=== PATIENT | female | born 1955 | race Caucasian/White ===

== ENCOUNTER → 2016-09-02 | Outpatient (CLI) | payer MEDICAID ==
[~2016-09-02] MED LIST: ASPIRIN 81M81 MG/TA2 PO; CELEXA10 MG PO; FLONASE NASAL S16 GM NS; FORTAMET500 MG PO; IMODIUM 2MG CAPS2 MG PO; LEVOTHROID0.125 MG PO; LISINOPRIL20 MG PO; LOMOTIL 0.025 M1 TAB PO; NAPROSYN500 MG PO; NATURAL MAGNES200 MG PO; NEURONTIN300 MG/CAP PO; PRILOSEC 20MG20 MG PO; PROAIR HFA0.09 MG/AC IH; QUININE SULFAT324 MG PO; SINGULAIR10 MG PO; SYNTHROID0.125 MG/T PO; SYSTANE BALANCE10 M1 OP; TYLENOL 325MG325 MG PO; VESICARE10 MG PO; VOLTAREN50 MG PO
[2016-09-02 13:36] LABS: CALCIUM 9.6 mg/dL (8.4-10.2); CREATININE, serum 0.69 mg/dL (0.52-1.25); MAGNESIUM 1.7 mg/dL (1.6-2.3); POTASSIUM 4.2 mmol/L (3.4-5.0)
== END ==
LOC: ZCOL.LAB 10:46
PROVIDERS: Internal Medicine
DX: F32.3 Major depressive disorder, single episode, severe with psychotic features (principal)

== ENCOUNTER → 2016-10-28 | Outpatient (CLI) | payer MEDICAID ==
[2016-10-28 20:13] LABS: CREATININE, serum 0.74 mg/dL (0.52-1.25); MAGNESIUM 1.6 mg/dL (1.6-2.3); POTASSIUM 4.4 mmol/L (3.4-5.0)
== END ==
LOC: ZCOL.LAB 19:53
PROVIDERS: Internal Medicine
DX: E83.42 Hypomagnesemia (principal); E11.9 Type 2 diabetes mellitus without complications

== ENCOUNTER → 2016-11-01 | Outpatient (CLI) | payer MEDICAID | LOC: ZCOL.LAB 21:21 | DX: Z53.9 Procedure and treatment not carried out, unspecified reason (principal) ==

== ENCOUNTER → 2016-11-02 | Outpatient (CLI) | payer MEDICAID | LOC: ZCOL.LAB 07:18 | DX: E03.8 Other specified hypothyroidism (principal) ==

== ENCOUNTER → 2017-02-08 | Outpatient (CLI) | payer MEDICAID | LOC: MHCPAIN 10:59 | DX: G89.29 Other chronic pain (principal); M47.817 Spondylosis without myelopathy or radiculopathy, lumbosacral region; M54.16 Radiculopathy, lumbar region; M53.3 Sacrococcygeal disorders, not elsewhere classified; Z87.891 Personal history of nicotine dependence | CPT/HCPCS: G0463 ==

== ENCOUNTER 2017-04-04 14:30 | Outpatient (RCR) | payer MEDICAID | END 2017-04-13 08:25 | disposition still patient (30) | LOC: WSPT 14:30 | DX: M51.36 Other intervertebral disc degeneration, lumbar region (principal) ==

== ENCOUNTER → 2017-04-07 | Outpatient (CLI) | payer MEDICAID | LOC: MC.RAD 13:40 | DX: Z12.31 Encounter for screening mammogram for malignant neoplasm of breast (principal) ==

== ENCOUNTER → 2017-05-04 | Outpatient (CLI) | payer MEDICAID | LOC: MHCPAIN 09:27 | DX: G89.29 Other chronic pain (principal); M47.817 Spondylosis without myelopathy or radiculopathy, lumbosacral region; M53.3 Sacrococcygeal disorders, not elsewhere classified; M79.2 Neuralgia and neuritis, unspecified; Z87.891 Personal history of nicotine dependence; E66.9 Obesity, unspecified; Z79.82 Long term (current) use of aspirin; Z68.43 Body mass index [BMI] 50.0-59.9, adult | CPT/HCPCS: G0463 ==

== ENCOUNTER → 2017-05-16 | Outpatient (CLI) | payer MEDICAID ==
[2017-05-16 12:46] LABS: THYROID STIMULATING HORMONE 2.17 uIU/mL (0.465-4.680)
== END ==
LOC: ZCOL.LAB 09:05
PROVIDERS: Internal Medicine
DX: E66.01 Morbid (severe) obesity due to excess calories (principal); E03.9 Hypothyroidism, unspecified

== ENCOUNTER → 2017-06-07 | Outpatient (CLI) | payer MEDICAID | LOC: COL.RAD 08:56 | DX: M47.817 Spondylosis without myelopathy or radiculopathy, lumbosacral region (principal); R93.7 Abnormal findings on diagnostic imaging of other parts of musculoskeletal system ==

== ENCOUNTER → 2017-08-30 | Outpatient (CLI) | payer MEDICAID | LOC: MHCPAIN 08:24 | DX: G89.29 Other chronic pain (principal); M47.27 Other spondylosis with radiculopathy, lumbosacral region; M53.3 Sacrococcygeal disorders, not elsewhere classified; M47.814 Spondylosis without myelopathy or radiculopathy, thoracic region; Z87.891 Personal history of nicotine dependence | CPT/HCPCS: G0463 ==

== ENCOUNTER → 2017-09-02 | Outpatient (CLI) | payer MEDICAID | LOC: ZCOL.LAB 06:00 | DX: E11.9 Type 2 diabetes mellitus without complications (principal) ==

== ENCOUNTER → 2017-09-02 | Outpatient (CLI) | payer MEDICAID | LOC: ZCOL.LAB 09:42 | DX: Z01.89 Encounter for other specified special examinations (principal) ==

== ENCOUNTER → 2017-09-29 | Outpatient (CLI) | payer MEDICAID | LOC: MHCPAIN 09:28 | DX: M47.817 Spondylosis without myelopathy or radiculopathy, lumbosacral region (principal) ==

== ENCOUNTER → 2017-10-04 | Outpatient (CLI) | payer MEDICAID | LOC: MHCPAIN 09:35 | DX: G89.29 Other chronic pain (principal); M47.817 Spondylosis without myelopathy or radiculopathy, lumbosacral region; M53.3 Sacrococcygeal disorders, not elsewhere classified | CPT/HCPCS: G0463 ==

== ENCOUNTER → 2017-10-27 | Outpatient (CLI) | payer MEDICAID | LOC: MHCPAIN 08:56 | DX: M47.817 Spondylosis without myelopathy or radiculopathy, lumbosacral region (principal) ==

== ENCOUNTER → 2017-11-01 | Outpatient (CLI) | payer MEDICAID | LOC: MHCPAIN 12:49 | DX: G89.29 Other chronic pain (principal); M47.817 Spondylosis without myelopathy or radiculopathy, lumbosacral region; M53.3 Sacrococcygeal disorders, not elsewhere classified; Z87.891 Personal history of nicotine dependence | CPT/HCPCS: G0463 ==

== ENCOUNTER → 2017-11-24 | Outpatient (CLI) | payer MEDICAID | LOC: MHCPAIN 09:20 | DX: M47.817 Spondylosis without myelopathy or radiculopathy, lumbosacral region (principal); M46.96 Unspecified inflammatory spondylopathy, lumbar region | CPT/HCPCS: J2250; J3010 ==

== ENCOUNTER → 2017-12-07 | Outpatient (CLI) | payer MEDICAID ==
[2017-12-07 09:44] LABS: ALBUMIN 3.9 gm/dL (3.5-5.0); BILIRUBIN,TOTAL 0.5 mg/dL (0.0-1.0); CALCIUM 9.8 mg/dL (8.4-10.2); CREATININE, serum 0.69 mg/dL (0.52-1.25); POTASSIUM 4.3 mmol/L (3.4-5.0); TOTAL PROTEIN 7.4 gm/dL (6.4-8.2)
== END ==
LOC: ZCOL.LAB 09:12
PROVIDERS: Internal Medicine
DX: E11.9 Type 2 diabetes mellitus without complications (principal)

== ENCOUNTER → 2017-12-22 | Outpatient (CLI) | payer MEDICAID | LOC: MHCPAIN 14:02 | DX: M47.817 Spondylosis without myelopathy or radiculopathy, lumbosacral region (principal); M43.16 Spondylolisthesis, lumbar region | CPT/HCPCS: J2250; J3010 ==

== ENCOUNTER → 2018-02-13 | Outpatient (CLI) | payer MEDICAID | LOC: MHCPAIN 12:31 | DX: G89.29 Other chronic pain (principal); M47.817 Spondylosis without myelopathy or radiculopathy, lumbosacral region; M53.3 Sacrococcygeal disorders, not elsewhere classified | CPT/HCPCS: G0463 ==

== ENCOUNTER → 2018-04-17 | Outpatient (CLI) | payer MEDICAID | LOC: MC.RAD 13:12 | DX: Z12.31 Encounter for screening mammogram for malignant neoplasm of breast (principal) ==

== ENCOUNTER → 2018-06-16 | Outpatient (REF) ==
[2018-06-16 09:57] LABS: BASO % 0.4 % (0.0-2.0); EOS # 0.5 (0.0-0.7); GRAN # 3.7 (1.4-6.5); GRAN % 54.9 % (42.2-75.2); HEMATOCRIT 41.1 % (37.0-47.0); HEMOGLOBIN 13.7 g/dl (12.5-16.0); LYMPH # 1.9 (1.2-3.4); LYMPH % 28.6 % (20.0-51.0); MEAN CELL VOLUME 93 fl (80.0-100.0); MEAN CORPUSCULAR HEMOGLOBIN 31 pg (27.0-31.0); MEAN CORPUSCULAR HGB CONC 33 g/dl (33.0-37.0); MEAN PLATELET VOLUME 11.4 fl (7.4-10.4); MONO # 0.5 (0.1-0.6); PLATELET COUNT 259 K/mm3 (130-400); RED BLOOD COUNT 4.43 M/mm3 (4.10-5.30); REDCELL DISTRIBUTION WIDTH-CV 14.8 % (11.5-14.5)
[2018-06-16 10:07] LABS: ALBUMIN 3.8 gm/dL (3.5-5.0); BILIRUBIN,TOTAL 0.5 mg/dL (0.0-1.0); CALCIUM 9.2 mg/dL (8.4-10.2); CREATININE, serum 0.57 mg/dL (0.52-1.25); POTASSIUM 4.5 mmol/L (3.4-5.0); TOTAL PROTEIN 6.9 gm/dL (6.4-8.2)
[2018-06-16 10:37] LABS: THYROID STIMULATING HORMONE 4.46 uIU/mL (0.465-4.680)
== END ==
LOC: ZCOL.LAB 09:51
PROVIDERS: Internal Medicine
DX: I10 Essential (primary) hypertension (principal); E03.9 Hypothyroidism, unspecified

== ENCOUNTER → 2018-09-01 | Outpatient (CLI) | payer MEDICAID | LOC: ZCOL.LAB 12:28 | DX: E03.9 Hypothyroidism, unspecified (principal) ==

== ENCOUNTER → 2018-09-07 | Outpatient (CLI) | payer MEDICAID | LOC: ZCOL.LAB 11:41 | DX: E11.9 Type 2 diabetes mellitus without complications (principal) ==

== ENCOUNTER → 2018-09-13 | Outpatient (CLI) | payer MEDICAID | LOC: MHCPAIN 08:20 | DX: G89.29 Other chronic pain (principal); M47.817 Spondylosis without myelopathy or radiculopathy, lumbosacral region; M53.3 Sacrococcygeal disorders, not elsewhere classified | CPT/HCPCS: G0463 ==

== ENCOUNTER → 2018-09-21 | Outpatient (CLI) | payer MEDICAID | LOC: MHCPAIN 08:18 | DX: M47.817 Spondylosis without myelopathy or radiculopathy, lumbosacral region (principal); M54.16 Radiculopathy, lumbar region ==

== ENCOUNTER → 2018-11-24 | Outpatient (REF) | LOC: ZCOL.LAB 13:16 | DX: M17.9 Osteoarthritis of knee, unspecified (principal) ==

== ENCOUNTER → 2018-11-30 | Outpatient (REF) | LOC: ZCOL.LAB 12:36 | DX: E03.9 Hypothyroidism, unspecified (principal) ==

== ENCOUNTER → 2018-12-07 | Outpatient (CLI) | payer MEDICAID | LOC: MHCPAIN 09:25 | DX: M47.817 Spondylosis without myelopathy or radiculopathy, lumbosacral region (principal); M53.3 Sacrococcygeal disorders, not elsewhere classified; G89.29 Other chronic pain | CPT/HCPCS: G0463; J2250; J3010 ==

== ENCOUNTER → 2018-12-14 | Outpatient (CLI) | payer MEDICAID | LOC: MHCPAIN 08:30 | DX: M47.817 Spondylosis without myelopathy or radiculopathy, lumbosacral region (principal); M54.16 Radiculopathy, lumbar region | CPT/HCPCS: J2250; J3010 ==

== ENCOUNTER → 2019-01-10 | Outpatient (CLI) | payer MEDICAID | LOC: MHCPAIN 13:47 | DX: G89.29 Other chronic pain (principal); M47.817 Spondylosis without myelopathy or radiculopathy, lumbosacral region; M53.3 Sacrococcygeal disorders, not elsewhere classified | CPT/HCPCS: G0463 ==

== ENCOUNTER → 2019-01-12 | Outpatient (CLI) | payer MEDICAID | LOC: ZCOL.LAB 13:30 | DX: E03.9 Hypothyroidism, unspecified (principal) ==

== ENCOUNTER → 2019-02-09 | Outpatient (CLI) | payer MEDICAID | LOC: ZCOL.LAB 16:01 | DX: E11.9 Type 2 diabetes mellitus without complications (principal) ==

== ENCOUNTER 2019-03-01 23:04 | Inpatient (IN) | payer MEDICARE, MEDICAID ==
[~2019-03-01] VITALS: Ht 144.8 cm; Wt 113.3 kg
[2019-03-01 23:49] LABS: BASO % 0.2 % (0.0-2.0); EOS % 0.3 % (0-4.0); GRAN # 8.2 (1.4-6.5); GRAN % 71.7 % (42.2-75.2); HEMATOCRIT 41.9 % (37.0-47.0); HEMOGLOBIN 13.9 g/dl (12.5-16.0); LYMPH # 2.3 (1.2-3.4); LYMPH % 20.1 % (20.0-51.0); MEAN CELL VOLUME 92 fl (80.0-100.0); MEAN CORPUSCULAR HEMOGLOBIN 31 pg (27.0-31.0); MEAN CORPUSCULAR HGB CONC 33 g/dl (33.0-37.0); MEAN PLATELET VOLUME 11.6 fl (7.4-10.4); MONO # 0.9 (0.1-0.6); MONO % 7.4 % (1.7-9.3); PLATELET COUNT 262 K/mm3 (130-400); RED BLOOD COUNT 4.55 M/mm3 (4.10-5.30); REDCELL DISTRIBUTION WIDTH-CV 14.6 % (11.5-14.5)
[2019-03-01 23:59] LABS: ACETAMINOPHEN < 10 ug/mL (10-30); ALANINE AMINOTRANSFERASE 18 U/L (9-52); ALBUMIN 4.3 gm/dL (3.5-5.0); ALCOHOL(ethanol),MEDICAL < 10 mg/dL; ALKALINE PHOSPHATASE 94 U/L (50-136); ANION GAP 10 mmol/L (7-16); AST,SGOT 25 U/L (15-37); BILIRUBIN,TOTAL 0.6 mg/dL (0.0-1.0); BLOOD UREA NITROGEN 24 mg/dL (7-17); CALCIUM 9.6 mg/dL (8.4-10.2); CARBON DIOXIDE 27 mmol/L (22-30); CHLORIDE 105 mmol/L (98-107); CREATININE, serum 0.78 (0.52-1.25); GLUCOSE 106 mg/dL (74-106); POTASSIUM 3.9 mmol/L (3.4-5.0); SALICYLATE < 1.0 mg/dL; SODIUM 142 mmol/L (137-145); TOTAL PROTEIN 8.1 gm/dL (6.4-8.2)
[2019-03-02 01:04] LABS: COLLECTION METHOD CLEAN CATCH
[2019-03-02 01:12] LABS: MUCOUS Present /lpf; PH 5 (5-8); SQUAMOUS EPITHELIAL None Seen /hpf; URINE APPEARANCE Hazy; URINE BACTERIA Moderate /hpf; URINE BILIRUBIN Negative (NEGATIVE); URINE BLOOD Negative (NEGATIVE); URINE COLOR Yellow; URINE GLUCOSE Negative (NEGATIVE); URINE KETONE Negative (NEGATIVE); URINE LEUKOCYTE ESTERASE 1+ (NEGATIVE); URINE NITRATE Positive (NEGATIVE); URINE PROTEIN(semi-quant) Negative (NEGATIVE); URINE RBC 0-2 /hpf; URINE UROBILINOGEN Negative (NEGATIVE)
[2019-03-02 01:18] LABS: TRICYCLIC ANTIDEPRESS URINE POSITIVE
[2019-03-02] MEDS ORDERED: SYNTHROID0.1 MG/TAB PO (03:22)
[2019-03-02] MEDS ORDERED: REFRESH TEARS 330 ML OP (03:23)
[2019-03-02] MEDS ORDERED: [UNRECOGNIZED DRUG - OTHER] TOP (03:24)
[2019-03-02] MEDS ORDERED: FLONASEALLERGY NS (03:25)
[2019-03-02] MEDS ORDERED: BIOFREEZE 0.2%-1 GE1 TOP (03:26)
[2019-03-02] MEDS ORDERED: CYMBALTA 60MG60 MG PO (03:27)
[2019-03-02] MEDS ORDERED: DITROPAN XL10 MG PO (03:28)
[2019-03-02] MEDS ORDERED: FLEXERIL5 MG PO (03:29)
[2019-03-02] MEDS ORDERED: CALCIUM 600600 MG PO (03:29)
[2019-03-02] MEDS ORDERED: ALLEGRA 180MG180 MG PO (03:30)
[2019-03-02] MEDS ORDERED: NEURONTIN300 MG/CAP PO (03:30)
[2019-03-02 03:34] VITALS: BP 119/57; PULSE 59; TEMP 97.6
[2019-03-02 04:00] VITALS: BP 119/57; PULSE 59; TEMP 97.6
--- NOTE | 2019-03-02 06:20 | NUR ---
Patient to the floor at 0330. Vital signs WNL. Patient whispers yes/no answers to questions. States her name is Sal. Patient withdrawn when first coming to the floor. Now patient verbalizes delusions such as "RICKY is alive and has been sold into slavery", "My is in the bathroom, he got locked in there and the door handle fell off.", "the beast put the cyst inside me, and the doctor in [place] said the cyst is killing me, I wish everyone had cysts inside them so they could .". Staff walks by patient room and patient noted to be talking to someone, but there is no one in the room. She pauses, as if she is listening to someone's responses. Bed alarm on. Patient does utilize call light when she needs to talk to staff. Will continue to monitor.
--- NOTE | 2019-03-02 08:00 | NUR ---
Patient in bed. Alert and hallucinating. Patient is speaking to "RUTHY". Speech is incoherent. Shift assessment complete. Takes meds without difficulty.
[2019-03-02 08:30] VITALS: BP 106/47; PULSE 57; TEMP 98.1
[2019-03-02 10:11] LABS: BASO % 0.1 % (0.0-2.0); EOS # 0.1 (0.0-0.7); GRAN # 5.1 (1.4-6.5); HEMATOCRIT 39.5 % (37.0-47.0); LYMPH # 1.9 (1.2-3.4); MEAN CELL VOLUME 93 fl (80.0-100.0); MEAN CORPUSCULAR HEMOGLOBIN 30 pg (27.0-31.0); MEAN CORPUSCULAR HGB CONC 33 g/dl (33.0-37.0); MEAN PLATELET VOLUME 12.1 fl (7.4-10.4); MONO # 0.8 (0.1-0.6); MONO % 10.4 % (1.7-9.3); PLATELET COUNT 228 K/mm3 (130-400); RED BLOOD COUNT 4.27 M/mm3 (4.10-5.30); REDCELL DISTRIBUTION WIDTH-CV 14.6 % (11.5-14.5)
[2019-03-02 10:22] LABS: CALCIUM 8.9 mg/dL (8.4-10.2); CREATININE, serum 0.66 (0.52-1.25); POTASSIUM 3.9 mmol/L (3.4-5.0)
[2019-03-02 12:12] VITALS: BP 135/71; PULSE 58; TEMP 97.9
--- NOTE | 2019-03-02 13:00 | NUR ---
Patients bed alarm going off, Patient crawling to floor as this nurse entered room. Patient, hallucinatory, states that the "wall has cracked and is going to fall". Attempted to reorient patient, unsuccessfull. Patient began rolling on floor out of room. Patient states she needs to get away from the crack. Resists attempts to get patient up off floor. Patient states she needs to get away because the floor because she going to fall into the crack. Patient then proceeds to roll out of room into [address]. Multiple staff members attempting to get patient up off floor. Patient resisting attempts. Dr. Salinas aware. Multiple staff members required to get patient up off floor into wheelchair. Patient moved to room 326. Daughter at bedside at this time. Patient now back in bed. Bed alarm on.
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
--- NOTE | 2019-03-02 15:55 | NUR ---
Patient accepted to [facility] tomorrow. [facility] P [phone] F [id number]
--- NOTE | 2019-03-02 17:23 | NUR ---
Patient in bed resting. Has done well the remainder of this afternoon. Has been using call light to get up out of bed. Daughter states that this is the worse epidose of hallucinations she has seen, last time this happened was 12 months ago. Patient will be transfering to [place] tomorrow. Denies further needs. Will report off to material handler 1st shift.
[2019-03-02 20:25] VITALS: BP 114/59; PULSE 86; TEMP 98.1
[2019-03-02 23:35] VITALS: BP 112/82; PULSE 86; TEMP 99.1
--- NOTE | 2019-03-03 01:57 | NUR ---
Upon arrival to shift at 1900, Patient was constantly talking about a lot of different topics such as Agent Garza, screwdrivers in her back, her "chinchilla nafisa" and would interrupt staff when they attempted to have a conversation about any of her topics. At about 2325, this nurse called Loree to update her that patient had talked non-stop since 1899. Patient was intermittently agitated with respiratory therapy and staff. Patient not combative. Loree ordered 25mg Seroquel now. At 0020 this nurse called Loree back and updated her that the Seroquel had not helped as patient was continuing to non-stop talk and had taken 2 walks around the unit. She ordered Geodon 10mg IM. This was administered at about 0030. Patient is now resting in bed and has stopped talking. Currently awake, but appears to be resting more comfortably. Patient utilizes call light to use the restroom frequently. Patient unable to be oriented at this time and continues to call herself "Sal". Will continue to monitor patient.
[2019-03-03 04:25] VITALS: BP 95/44; PULSE 61; TEMP 98.4
--- NOTE | 2019-03-03 04:35 | NUR ---
Patient noted to be snoring upon entering the room. This nurse awoke patient and she stated her name as Mili Downs, that it was February of 2019, and she was at [facility]. Patient reoriented that she was at the hospital and she stated, "Oh, that's right." Patient took oral synthroid, was administered IM Rocephin with no difficulty. Patient then went back to sleep. Easily arousable. Will continue to monitor patient.
[2019-03-03 07:37] LABS: BASO % 0.2 % (0.0-2.0); EOS # 0.3 (0.0-0.7); EOS % 2.7 % (0-4.0); GRAN # 5.9 (1.4-6.5); GRAN % 62.9 % (42.2-75.2); HEMATOCRIT 40.3 % (37.0-47.0); HEMOGLOBIN 13.4 g/dl (12.5-16.0); LYMPH # 2.3 (1.2-3.4); LYMPH % 24.5 % (20.0-51.0); MEAN CELL VOLUME 91 fl (80.0-100.0); MEAN CORPUSCULAR HEMOGLOBIN 30 pg (27.0-31.0); MEAN CORPUSCULAR HGB CONC 33 g/dl (33.0-37.0); MEAN PLATELET VOLUME 11.8 fl (7.4-10.4); MONO # 0.9 (0.1-0.6); MONO % 9.4 % (1.7-9.3); PLATELET COUNT 235 K/mm3 (130-400); RED BLOOD COUNT 4.43 M/mm3 (4.10-5.30); REDCELL DISTRIBUTION WIDTH-CV 14.4 % (11.5-14.5)
[2019-03-03 07:46] VITALS: BP 120/65; PULSE 77; TEMP 98.1
[2019-03-03 07:49] LABS: CREATININE, serum 0.59 (0.52-1.25); POTASSIUM 3.8 mmol/L (3.4-5.0)
[2019-03-03] MEDS ORDERED: CEFTIN 250250 MG/TAB PO (07:49)
--- NOTE | 2019-03-03 09:03 | NUR ---
the pt was bedresting, fidgeting as the shift began, bedside with Mirella CASTORENA. the pt is A&O, but interjecting delusions. 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 her daughter came into visit, stated that she is an only shild. the pt took her meds whole without difficulty.
--- NOTE | 2019-03-03 10:00 | NUR ---
SW informed that patient can discharge to [facility] for geriatric psych treatment today 03/03. Shop Manager contacted [facility]. RUSS faxed discharge orders and spoke with patient's daughter about discharge.
--- NOTE | 2019-03-03 11:14 | NUR ---
THE PT IS UP TO AMBULATE AGAIN. RESTLESS
--- NOTE | 2019-03-03 11:43 | NUR ---
RECIEVED A CALL FROM [facility], THIS NURSE CALLED PTS DAUGHTER, GNOZALES TO LET HER KNOW THAT THEY WILL BE HERE TO TRANSPORT THE PT IN ABOUT 30 MIN. THIS NURSE CALLED REPORT TO [facility] AT [facility]. [phone] TO RECIEVING NURSE.
--- NOTE | 2019-03-03 11:45 | NUR ---
Visited, listened, and prayed with the patient.
--- NOTE | 2019-03-03 12:08 | NUR ---
[facility] HERE, PT AMBULATED WITH HER FRONT WHEEL WALKER TO THEIR AWAITING VEHICLE AT THE EMERGENCY DOOR ENTERANCE. INFO PACKET VREO.
== END 2019-03-03 12:00 | DRG 690 ==
LOC: COL.ER 23:04 → SURG 03-02 02:15
PROVIDERS: Emergency Medicine; Nurse Practitioner Family; ADMIT Internal Medicine
DX: N39.0 Urinary tract infection, site not specified (principal); Z68.43 Body mass index [BMI] 50.0-59.9, adult; F33.3 Major depressive disorder, recurrent, severe with psychotic symptoms; J44.9 Chronic obstructive pulmonary disease, unspecified; E11.40 Type 2 diabetes mellitus with diabetic neuropathy, unspecified; E66.9 Obesity, unspecified; E03.9 Hypothyroidism, unspecified; K21.9 Gastro-esophageal reflux disease without esophagitis; K58.9 Irritable bowel syndrome, unspecified; I10 Essential (primary) hypertension; Z86.718 Personal history of other venous thrombosis and embolism; G47.39 Other sleep apnea; Z66 Do not resuscitate; N32.81 Overactive bladder
CPT/HCPCS: 99222-AI; 99239; A4216; J0696; J3486

== ENCOUNTER → 2019-03-21 | Outpatient (CLI) | payer MEDICARE, MEDICAID ==
[~2019-03-21] MED LIST changes: +ALLEGRA 180MG180 MG PO; +BIOFREEZE 0.2%-1 GE1 TOP; +CALCIUM 600600 MG PO; +CEFTIN 250250 MG/TAB PO; +CYMBALTA 60MG60 MG PO; +DITROPAN XL10 MG PO; +FLEXERIL5 MG PO; +FLONASEALLERGY NS; +REFRESH TEARS 330 ML OP; +SYNTHROID0.1 MG/TAB PO; +[UNRECOGNIZED DRUG - OTHER] TOP
[2019-03-21 21:32] LABS: COLLECTION METHOD CLEAN CATCH
[2019-03-21 21:46] LABS: MUCOUS Present /lpf; PH 5 (5-8); URINE APPEARANCE Hazy; URINE BACTERIA Rare /hpf; URINE BILIRUBIN Negative (NEGATIVE); URINE BLOOD Negative (NEGATIVE); URINE COLOR Yellow; URINE GLUCOSE Negative (NEGATIVE); URINE KETONE Negative (NEGATIVE); URINE LEUKOCYTE ESTERASE Negative (NEGATIVE); URINE NITRATE Negative (NEGATIVE); URINE PROTEIN(semi-quant) Negative (NEGATIVE); URINE RBC 0-2 /hpf; URINE UROBILINOGEN Negative (NEGATIVE); URINE WBC 0-2 /hpf
== END ==
LOC: COL.LAB 20:53
DX: N39.0 Urinary tract infection, site not specified (principal)

== ENCOUNTER → 2019-05-03 | Outpatient (CLI) | payer MEDICARE, MEDICAID | LOC: MC.RAD 09:02 | DX: Z12.31 Encounter for screening mammogram for malignant neoplasm of breast (principal) ==

== ENCOUNTER → 2019-05-15 | Outpatient (CLI) | payer MEDICAID | LOC: MHCPAIN 13:53 | DX: G89.29 Other chronic pain (principal); M47.817 Spondylosis without myelopathy or radiculopathy, lumbosacral region; M53.3 Sacrococcygeal disorders, not elsewhere classified | CPT/HCPCS: G0463 ==

== ENCOUNTER → 2019-07-17 | Outpatient (CLI) | payer MEDICAID ==
[2019-07-17 09:49] LABS: CHOLESTEROL RISK RATIO 3.4
[2019-07-17 10:07] LABS: PROLACTIN 63.7 ng/mL (3.0-18.6)
[2019-07-17 10:21] LABS: THYROID STIMULATING HORMONE 1.09 uIU/mL (0.465-4.680)
== END ==
LOC: ZCOL.LAB 08:25
PROVIDERS: Family Medicine
DX: E55.9 Vitamin D deficiency, unspecified (principal); E75.6 Lipid storage disorder, unspecified; E22.1 Hyperprolactinemia; E34.9 Endocrine disorder, unspecified

== ENCOUNTER → 2019-09-28 | Outpatient (CLI) | payer MEDICAID | LOC: ZCOL.LAB 10:39 | DX: E03.9 Hypothyroidism, unspecified (principal) ==

== ENCOUNTER → 2019-12-25 | Outpatient (CLI) | payer MEDICAID ==
[2019-12-25 12:59] LABS: ALBUMIN 3.9 gm/dL (3.5-5.0); BILIRUBIN UNCONJUGATED 0.2 mg/dL (0.0-1.1); BILIRUBIN,DIRECT 0.1 mg/dL (0.0-0.4); BILIRUBIN,TOTAL 0.3 mg/dL (0.0-1.0); TOTAL PROTEIN 6.9 gm/dL (6.4-8.2)
== END ==
LOC: ZCOL.LAB 12:38
PROVIDERS: Family Medicine
DX: I10 Essential (primary) hypertension (principal)

== ENCOUNTER → 2020-03-03 | Outpatient (CLI) | payer MEDICARE, MEDICAID | LOC: ZCOL.LAB 17:33 | DX: E11.40 Type 2 diabetes mellitus with diabetic neuropathy, unspecified (principal); I10 Essential (primary) hypertension ==

== ENCOUNTER → 2020-07-23 | Outpatient (CLI) | payer MEDICARE, MEDICAID ==
[2020-07-23 13:48] LABS: BASO % 0.3 % (0.0-2.0); EOS # 0.1 (0.0-0.7); EOS % 1.7 % (0-4.0); GRAN # 3.9 (1.4-6.5); GRAN % 59.8 % (42.2-75.2); HEMATOCRIT 42.4 % (37.0-47.0); HEMOGLOBIN 14.1 g/dl (12.5-16.0); LYMPH % 30.8 % (20.0-51.0); MEAN CELL VOLUME 96 fl (80.0-100.0); MEAN CORPUSCULAR HEMOGLOBIN 32 pg (27.0-31.0); MEAN CORPUSCULAR HGB CONC 33 g/dl (33.0-37.0); MEAN PLATELET VOLUME 12.2 fl (7.4-10.4); MONO # 0.5 (0.1-0.6); MONO % 7.2 % (1.7-9.3); PLATELET COUNT 246 K/mm3 (130-400); RED BLOOD COUNT 4.44 M/mm3 (4.10-5.30); REDCELL DISTRIBUTION WIDTH-CV 14.4 % (11.5-14.5)
[2020-07-23 13:57] LABS: ALBUMIN 3.7 gm/dL (3.5-5.0); BILIRUBIN,TOTAL 0.5 mg/dL (0.0-1.0); CALCIUM 9.3 mg/dL (8.4-10.2); CHOLESTEROL RISK RATIO 2.9; CREATININE, serum 0.67 (0.52-1.25); POTASSIUM 4.9 mmol/L (3.4-5.0); TOTAL PROTEIN 6.7 gm/dL (6.4-8.2)
== END ==
LOC: ZCOL.LAB 13:16
PROVIDERS: Family Medicine
DX: E11.40 Type 2 diabetes mellitus with diabetic neuropathy, unspecified (principal); E03.9 Hypothyroidism, unspecified

== ENCOUNTER → 2020-07-29 | Outpatient (CLI) | payer MEDICARE, MEDICAID | LOC: ZCOL.LAB 13:34 | DX: E55.9 Vitamin D deficiency, unspecified (principal); E22.1 Hyperprolactinemia ==

== ENCOUNTER → 2021-03-24 | Outpatient (CLI) | payer MEDICARE, MEDICAID | LOC: ZCOL.LAB 16:55 | DX: E83.52 Hypercalcemia (principal); E03.9 Hypothyroidism, unspecified ==

== ENCOUNTER → 2021-03-24 | Outpatient (REF) | payer SELFPAY | LOC: ZCOL.LAB 15:11 | DX: E83.00 Disorder of copper metabolism, unspecified (principal); E03.9 Hypothyroidism, unspecified ==

== ENCOUNTER → 2021-05-06 | Outpatient (CLI) | payer MEDICARE, MEDICAID | LOC: MC.RAD 08:00 | DX: Z12.31 Encounter for screening mammogram for malignant neoplasm of breast (principal) ==

== ENCOUNTER → 2021-05-08 | Outpatient (CLI) | payer MEDICARE, MEDICAID ==
[2021-05-08 16:06] LABS: COLLECTION METHOD CLEAN CATCH
[2021-05-08 16:22] LABS: MUCOUS Present /lpf; PH 6 (5-8); SQUAMOUS EPITHELIAL 0-2 /hpf; URINE APPEARANCE Hazy; URINE BACTERIA None Seen /hpf; URINE BILIRUBIN Negative (NEGATIVE); URINE BLOOD Negative (NEGATIVE); URINE COLOR Straw; URINE GLUCOSE Negative (NEGATIVE); URINE KETONE Negative (NEGATIVE); URINE LEUKOCYTE ESTERASE 2+ (NEGATIVE); URINE NITRATE Negative (NEGATIVE); URINE PROTEIN(semi-quant) Negative (NEGATIVE); URINE RBC None Seen /hpf; URINE UROBILINOGEN Negative (NEGATIVE)
== END ==
LOC: ZCOL.LAB 14:26
PROVIDERS: Family Medicine
DX: N39.0 Urinary tract infection, site not specified (principal)

== ENCOUNTER → 2021-11-26 | Outpatient (CLI) | payer MEDICARE, MEDICAID ==
[2021-11-26 19:31] LABS: COLLECTION METHOD CLEAN CATCH
[2021-11-26 19:46] LABS: PH 6 (5-8); SQUAMOUS EPITHELIAL None Seen /hpf (0-10); URINE APPEARANCE Cloudy (CLEAR/HAZY); URINE BACTERIA None Seen /hpf (NONE SEEN); URINE BILIRUBIN Negative (NEGATIVE); URINE BLOOD 1+ (NEGATIVE); URINE COLOR Yellow (YELLOW); URINE GLUCOSE Negative (NEGATIVE); URINE KETONE Negative (NEGATIVE); URINE LEUKOCYTE ESTERASE 3+ (NEGATIVE); URINE NITRATE Positive (NEGATIVE); URINE PROTEIN(semi-quant) Negative (NEGATIVE); URINE RBC 0-2 /hpf (0-2); URINE UROBILINOGEN Negative (NEGATIVE); URINE WBC >50 /hpf (0-2)
== END ==
LOC: ZCOL.LAB 18:49
PROVIDERS: Family Medicine
DX: N39.0 Urinary tract infection, site not specified (principal)

== ENCOUNTER → 2021-12-24 | Outpatient (CLI) | payer MEDICARE, MEDICAID ==
[2021-12-24 10:57] LABS: COLLECTION METHOD CLEAN CATCH
[2021-12-24 10:59] LABS: PH 8 (5-8); SQUAMOUS EPITHELIAL None Seen /hpf (0-10); URINE APPEARANCE Cloudy (CLEAR/HAZY); URINE BACTERIA None Seen /hpf (NONE SEEN); URINE BILIRUBIN Negative (NEGATIVE); URINE BLOOD 1+ (NEGATIVE); URINE COLOR Yellow (YELLOW); URINE GLUCOSE Negative (NEGATIVE); URINE KETONE Negative (NEGATIVE); URINE LEUKOCYTE ESTERASE 3+ (NEGATIVE); URINE NITRATE Positive (NEGATIVE); URINE PROTEIN(semi-quant) Negative (NEGATIVE); URINE UROBILINOGEN Negative (NEGATIVE); URINE WBC >50 /hpf (0-2)
== END ==
LOC: ZCOL.LAB 10:20
PROVIDERS: Family Medicine
DX: N39.0 Urinary tract infection, site not specified (principal)

== ENCOUNTER → 2022-01-25 | Outpatient (CLI) | payer MEDICARE, MEDICAID ==
[2022-01-25 10:06] LABS: ALBUMIN 3.4 gm/dL (3.4-4.8); BILIRUBIN,TOTAL 0.6 mg/dL (0.2-1.2); CALCIUM 9.2 mg/dL (8.4-10.2); CHOLESTEROL RISK RATIO 2.1; CREATININE, serum 0.71 mg/dL (0.57-1.11); POTASSIUM 4.6 mmol/L (3.5-4.5); PROLACTIN 50.4 ng/mL (5.18-26.53); THYROID STIMULATING HORMONE 3.731 uIU/mL (0.350-4.940); TOTAL PROTEIN 6.3 gm/dL (6.2-8.1)
[2022-01-25 10:11] LABS: BASO % 0.1 % (0.0-2.0); EOS # 0.2 K/mm3 (0.0-0.7); EOS % 1.9 % (0.0-4.0); GRAN # 5.9 K/mm3 (1.4-6.5); GRAN % 67.8 % (42.2-75.2); HEMATOCRIT 38.8 % (37.0-47.0); HEMOGLOBIN 12.9 g/dl (12.5-16.0); LYMPH % 23.3 % (20.0-51.0); MEAN CELL VOLUME 99 fl (80.0-100.0); MEAN CORPUSCULAR HEMOGLOBIN 33 pg (27-31); MEAN CORPUSCULAR HGB CONC 33 g/dl (33.0-37.0); MEAN PLATELET VOLUME 11.2 fl (7.4-10.4); MONO # 0.6 K/mm3 (0.1-0.6); MONO % 6.6 % (1.7-9.3); PLATELET COUNT 250 K/mm3 (130-400); RED BLOOD COUNT 3.94 M/mm3 (4.10-5.30); REDCELL DISTRIBUTION WIDTH-CV 14.3 % (11.5-14.5)
== END ==
LOC: ZCOL.LAB 09:51
PROVIDERS: Family Medicine
DX: I10 Essential (primary) hypertension (principal); E78.5 Hyperlipidemia, unspecified; Z79.899 Other long term (current) drug therapy; E03.9 Hypothyroidism, unspecified; E11.9 Type 2 diabetes mellitus without complications

== ENCOUNTER → 2022-05-10 | Outpatient (CLI) | payer MEDICARE, MEDICAID | LOC: MC.RAD 08:12 | DX: Z12.31 Encounter for screening mammogram for malignant neoplasm of breast (principal) ==

== ENCOUNTER 2023-09-07 12:39 | Outpatient (CLI) | payer MEDICARE, MEDICAID ==
[~2023-09-07] VITALS: Ht 144.8 cm; Wt 109.6 kg
[~2023-09-07 12:39] MED LIST changes: +CYMBALTA 20MG20 MG PO; -CYMBALTA 60MG60 MG PO; +FLEXERIL 1010 MG/TAB PO; -FLEXERIL5 MG PO
[2023-09-07] MEDS ORDERED: LIPITOR 40MG TA40 MG PO (13:28)
[2023-09-07] MEDS ORDERED: ALLEGRA 180MG180 MG PO (13:28)
[2023-09-07] MEDS ORDERED: FOSAMAX 70MG TA70 MG PO (13:30)
[2023-09-07] MEDS ORDERED: MELATONIN3 M1 PO (13:31)
[2023-09-07] MEDS ORDERED: MOBIC15 MG PO (13:31)
[2023-09-07] MEDS ORDERED: SINGULAIR 110 MG/TAB PO (13:32)
[2023-09-07] MEDS ORDERED: PROBIOTIC ACID1 EAC3 PO (13:34)
[2023-09-07] MEDS ORDERED: SYNTHROID0.112 MG/T PO (13:35)
[2023-09-07] MEDS ORDERED: MASON NATURAL2000 IU PO (13:35)
[2023-09-07] MEDS ORDERED: BENTYL 10MG10 MG/CAP PO (13:36)
[2023-09-07 13:46] VITALS: BP 129/80; PULSE 75; TEMP 97.6
[2023-09-07] MEDS ORDERED: TYLENOL 500MG500 MG PO (14:01)
[2023-09-07] MEDS ORDERED: RISPERDAL 0.5M0.5 MG PO (14:01)
== END 2023-09-07 14:04 ==
LOC: EUO 12:39
DX: M81.0 Age-related osteoporosis without current pathological fracture (principal)
CPT/HCPCS: J0897

== ENCOUNTER → 2024-06-13 | Outpatient (CLI) | payer MEDICARE, MEDICAID ==
[~2024-06-13] MED LIST changes: +BENTYL 10MG10 MG/CAP PO; -DITROPAN XL10 MG PO; +DITROPAN XL15 MG PO; +EUCERIN1 CRE TOP; +FOSAMAX 70MG TA70 MG PO; +LIPITOR 40MG TA40 MG PO; +MASON NATURAL2000 IU PO; +MELATIN 3 MG-11 TAB PO; +MELATONIN3 M1 PO; +MOBIC15 MG PO; +PROBIOTIC ACID1 EAC3 PO; +PROBIOTIC BLEN1 EACH PO; +PROLIA60 MG/ML SQ; +RISPERDAL 0.20.25 MG PO; +SINGULAIR 110 MG/TAB PO; +SYNTHROID0.112 MG/T PO; +TERBINAFINE TP; +TYLENOL 500MG500 MG PO; +VOLTAREN GEL 1%1 TU TP
== END ==
LOC: MC.RAD 11:17
DX: Z12.31 Encounter for screening mammogram for malignant neoplasm of breast (principal); Z80.3 Family history of malignant neoplasm of breast